=== PATIENT | female | born 1965 | race Hispanic/Latino ===

== ENCOUNTER 2017-03-19 19:47 | Emergency (ER) | payer SELFPAY | END 2017-03-19 19:49 | disposition short-term general hospital (02) | LOC: ER 19:47 | DX: R07.9 Chest pain, unspecified (principal) ==

== ENCOUNTER 2022-05-28 10:51 | Emergency (ER) | payer OTHER ==
[~2022-05-28] VITALS: Ht 149.9 cm; Wt 82.1 kg
[2022-05-28] MEDS ORDERED: KETOROLAC TROMETHAMINE 30 MG/ML VIAL IV STA (11:28)
[2022-05-28] MEDS ORDERED: SODIUM CHLORIDE 0.9% 1000ML 1,000 ML IV STA (11:30)
[2022-05-28] MEDS ORDERED: ASPIRIN 81 MG CHEW TAB PO ONE (11:30)
[2022-05-28] MEDS ORDERED: Morphine 4mg INJECTION 4 MG/ML INJ IV ONE (11:30)
[2022-05-28 11:44] LABS: BASOPHILS % 0.3 % (0.0-1.0); EOSINOPHILS # (AUTO) 0.1 (0.0-0.4); EOSINOPHILS % 0.5 % (0.0-6.0); HEMATOCRIT 39.5 % (34.2-44.1); HEMOGLOBIN 13.3 g/dL (12.0-16.0); LYMPHOCYTES % 10.4 % (18.0-39.1); MEAN CORPUSCULAR HEMOGLOBIN 31.5 pg (28-32); MEAN CORPUSCULAR HGB CONC 33.7 g/dL (31-35); MEAN CORPUSCULAR VOLUME 93.6 fL (81-99); MONOCYTES # (AUTO) 0.3 (0.2-0.8); MONOCYTES % 2.6 % (4.4-11.3); NEUTROPHILS # (AUTO) 8.5 (2.1-6.9); NEUTROPHILS % 85.6 % (38.7-80.0); PLATELET COUNT 240 x10e3/uL (140-360); RED BLOOD COUNT 4.22 x10e6/uL (3.6-5.1); RED CELL DISTRIBUTION WIDTH 12.1 % (11.7-14.4)
[2022-05-28] MEDS ORDERED: CEFTRIAXONE 1 GM VIAL IV ONE (11:45)
[2022-05-28 12:01] LABS: ANION GAP 15.8 mmol/L (8-16); CALCIUM 9.4 mg/dL (8.4-10.2); CREATININE, SERUM 0.78 mg/dL (0.57-1.11); POTASSIUM 3.8 mmol/L (3.5-5.1)
[2022-05-28 12:07] LABS: CREATINE KINASE MB 0.3 ng/mL (0-5.0)
[2022-05-28 12:10] LABS: ALBUMIN 3.3 g/dL (3.5-5.0); BILIRUBIN,DIRECT 0.3 mg/dL (0.0-0.5)
[2022-05-28] MEDS ORDERED: IOPAMIDOL 370 MG/ML 100 ML INFUS..BTL INJ ONE (12:51)
[2022-05-28 13:10] LABS: CLARITY,URINE SL CLOUDY (CLEAR); COLOR,URINE YELLOW (YELLOW)
[2022-05-28 13:11] LABS: KETONES,URINE NEGATIVE (NEGATIVE); LEUKOCYTE ESTERASE ,URINE NEGATIVE (NEGATIVE); NITRITE,URINE NEGATIVE (NEGATIVE); PROTEIN,URINE DIPSTICK NEGATIVE (NEGATIVE); URINE UROBILINOGEN 0.2 mg/dL (0.2 - 1)
[2022-05-28 13:18] LABS: BACTERIA,URINE RARE /HPF; EPITHELIAL CELLS,URINE RARE /LPF; RBC,URINE 0-5 /HPF (0-5); WBC,URINE (MAN) 0-5 /HPF (0-5)
[2022-05-28] MEDS ORDERED: ONDANSETRON ODT4 MG PO (14:16)
[2022-05-28 15:59] VITALS: BP 118/81
== END 2022-05-28 16:02 | disposition home or self-care (01) ==
LOC: ER 11:29
DX: R10.9 Unspecified abdominal pain (principal); R11.2 Nausea with vomiting, unspecified; R19.7 Diarrhea, unspecified; K76.0 Fatty (change of) liver, not elsewhere classified; I10 Essential (primary) hypertension; E11.9 Type 2 diabetes mellitus without complications; Z79.82 Long term (current) use of aspirin
CPT/HCPCS: 36415; 74177; 80048; 80076; 81001; 82550; 82553; 83605; 83690; 84484; 85025; 87040; 93005; 99284; J0696; J1885; J7030; Q9967; J2270

== ENCOUNTER 2023-06-26 16:13 | Inpatient (IN) | payer OTHER ==
[~2023-06-26] VITALS: Ht 154.9 cm; Wt 76.2 kg
[~2023-06-26 16:13] MED LIST: CEFDINIR300 MG PO; ONDANSETRON ODT4 MG PO
[2023-06-26 17:11] LABS: BASOPHILS % 0.1 % (0.0-1.0); EOSINOPHILS # (AUTO) 0.1 (0.0-0.4); EOSINOPHILS % 0.7 % (0.0-6.0); HEMATOCRIT 25.5 % (34.2-44.1); HEMOGLOBIN 8.6 g/dL (12.0-16.0); LYMPHOCYTES # (AUTO) 0.3 (1.0-3.2); LYMPHOCYTES % 3.7 % (18.0-39.1); MEAN CORPUSCULAR HEMOGLOBIN 30.2 pg (28-32); MEAN CORPUSCULAR HGB CONC 33.7 g/dL (31-35); MEAN CORPUSCULAR VOLUME 89.5 fL (81-99); MONOCYTES # (AUTO) 0.2 (0.2-0.8); MONOCYTES % 2.6 % (4.4-11.3); NEUTROPHILS % 90.1 % (38.7-80.0); PLATELET COUNT 197 x10e3/uL (140-360); RED BLOOD COUNT 2.85 x10e6/uL (3.6-5.1); RED CELL DISTRIBUTION WIDTH 16.5 % (11.7-14.4); WHITE BLOOD COUNT 8.86 x10e3/uL (4.8-10.8)
[2023-06-26 17:29] LABS: ALANINE AMINOTRANSFERASE 22 IU/L (0-55); ALBUMIN 1.8 g/dL (3.5-5.0); ALBUMIN/GLOBULIN RATIO 0.5 (0.8-2.0); ALKALINE PHOSPHATASE 148 IU/L (40-150); ANION GAP 12.8 mmol/L (8-16); BILIRUBIN,TOTAL 0.2 mg/dL (0.2-1.2); BLOOD UREA NITROGEN 19 mg/dL (7-26); BUN/CREATININE RATIO 25 (6-25); CALCIUM 8.5 mg/dL (8.4-10.2); CARBON DIOXIDE 21 mmol/L (22-29); CHLORIDE 108 mmol/L (98-107); CREATININE, SERUM 0.76 mg/dL (0.57-1.11); EST GLOMERULAR FILTRATION RATE 91 ML/MIN (>=60); GLUCOSE 354 mg/dL (74-118); POTASSIUM 4.8 mmol/L (3.5-5.1); SODIUM 137 mmol/L (136-145); TOTAL PROTEIN 5.2 g/dL (6.5-8.1)
[2023-06-26 17:35] LABS: TROPONIN I < 0.001 ng/mL (0-0.300)
[2023-06-26] MEDS ORDERED: DEXTROSE 50% SYRINGE 50 ML IV PRN (18:30)
[2023-06-26] MEDS ORDERED: SODIUM CHLORIDE FLUSH 10 ML SYR INJ PRN (18:30)
[2023-06-26 19:10] VITALS: PULSE 87; RESP 18; O2SAT 100
[2023-06-26] MEDS: ONDANSETRON HCL INJ 2MG/ML 2ML 2 MG/ML VIAL IV PRN (19:20)
[2023-06-26] MEDS: Morphine 2mg Syringe 2 MG/ML SYR IV PRN (19:20)
[2023-06-26 19:31] LABS: FERRITIN 667.43 ng/mL (4.63-204.00)
[2023-06-26] MEDS: INSULIN REGULAR, HUMAN 100 UNIT/1 ML SQ SCH (21:09)
[2023-06-26] MEDS ORDERED: METFORMIN HCL500 MG PO (23:08)
[2023-06-26] MEDS ORDERED: TRAZODONE HCL50 MG PO (23:08)
[2023-06-26] MEDS ORDERED: DULOXETINE HCL60 MG PO (23:08)
[2023-06-26] MEDS ORDERED: CARVEDILOL12.5 MG PO (23:08)
[2023-06-26] MEDS ORDERED: PANTOPRAZOLE SO40 MG PO (23:08)
[2023-06-26] MEDS ORDERED: PROVENTIL HFA6.7 GM IH (23:08)
[2023-06-26] MEDS ORDERED: HYDROCODON-ACE1 EA12 PO (23:08)
[2023-06-26] MEDS ORDERED: OLMESARTAN MEDO40 MG PO (23:08)
[2023-06-26] MEDS ORDERED: SULFAMETHOXAZOL20 ML PO (23:08)
[2023-06-26] MEDS ORDERED: PREDNISONE5 MG PO (23:08)
[2023-06-26 23:19] VITALS: BP 179/97; PULSE 86; RESP 18; TEMP 97.4; O2SAT 100
[2023-06-26 23:30] VITALS: BP 179/97; PULSE 86; RESP 18; TEMP 97.4; O2SAT 100
[2023-06-26] MEDS: CLONIDINE HCL 0.1 MG TAB PO PRN (23:49)
[2023-06-27] VITALS (12 sets, daily range): BP systolic 139–185; BP diastolic 90–102; PULSE 69–92; RESP 16–18; TEMP 97.4–98.4; O2SAT 96–100
[2023-06-27] MEDS: ALBUTEROL/IPRATROPIUM 3 ML NEB NEB SCH (00:26)
[2023-06-27 02:00] LABS: CREATINE KINASE 9 IU/L (29-168)
[2023-06-27 02:07] LABS: TROPONIN I < 0.001 ng/mL (0-0.300)
[2023-06-27 05:01] LABS: EOSINOPHILS % 0.3 % (0.0-6.0); HEMATOCRIT 25.4 % (34.2-44.1); LYMPHOCYTES # (AUTO) 0.4 (1.0-3.2); LYMPHOCYTES % 5.9 % (18.0-39.1); MEAN CORPUSCULAR HEMOGLOBIN 29.2 pg (28-32); MEAN CORPUSCULAR HGB CONC 30.7 g/dL (31-35); MONOCYTES # (AUTO) 0.2 (0.2-0.8); MONOCYTES % 3.4 % (4.4-11.3); NEUTROPHILS # (AUTO) 5.6 (2.1-6.9); NEUTROPHILS % 87.9 % (38.7-80.0); PLATELET COUNT 190 x10e3/uL (140-360); RED BLOOD COUNT 2.67 x10e6/uL (3.6-5.1); RED CELL DISTRIBUTION WIDTH 16.7 % (11.7-14.4); WHITE BLOOD COUNT 6.42 x10e3/uL (4.8-10.8)
[2023-06-27 05:21] LABS: HEMOGLOBIN 7.8 g/dL (12.0-16.0); MEAN CORPUSCULAR VOLUME 95.1 fL (81-99)
[2023-06-27 05:32] LABS: ALBUMIN 1.7 g/dL (3.5-5.0); ALBUMIN/GLOBULIN RATIO 0.6 (0.8-2.0); ANION GAP 11.8 mmol/L (8-16); BILIRUBIN,TOTAL 0.1 mg/dL (0.2-1.2); CALCIUM 8.3 mg/dL (8.4-10.2); CREATININE, SERUM 0.71 mg/dL (0.57-1.11); POTASSIUM 4.8 mmol/L (3.5-5.1); TOTAL PROTEIN 4.6 g/dL (6.5-8.1)
[2023-06-27 08:23] LABS: CREATINE KINASE 7 IU/L (29-168)
[2023-06-27 08:30] LABS: TROPONIN I < 0.001 ng/mL (0-0.300)
[2023-06-27] MEDS ORDERED: HYDROCODONE/APAP 7.5MG-325MG 1 EA TAB PO PRN (10:30)
[2023-06-27] MEDS ORDERED: ALBUTEROL 90 MCG/ACT INHALER INH PRN (10:30)
[2023-06-27] MEDS: DULOXETINE HCL 30 MG DELAYED RELEASE PO SCH (11:11)
[2023-06-27] MEDS ORDERED: DULOXETINE HCL 30 MG DELAYED RELEASE ONE (11:11)
[2023-06-27] MEDS ORDERED: PREDNISONE 5 MG TAB ONE (11:11)
[2023-06-27] MEDS: FUROSEMIDE INJ 10 MG/ML 4 ML VIAL IV ONE (11:11)
[2023-06-27] MEDS: OLMESARTAN 20 MG TAB PO SCH (11:11)
[2023-06-27] MEDS ORDERED: FUROSEMIDE INJ 10 MG/ML 4 ML VIAL ONE ×2 (11:11→15:58)
[2023-06-27] MEDS ORDERED: OLMESARTAN 20 MG TAB ONE (11:11)
[2023-06-27] MEDS: ACETAMINOPHEN 325 MG TAB PO PRN (11:12)
[2023-06-27] MEDS: PREDNISONE 5 MG TAB PO SCH (11:19)
[2023-06-27] MEDS ORDERED: CARVEDILOL 12.5 MG TAB ONE (15:58)
[2023-06-27] MEDS: FUROSEMIDE INJ 10 MG/ML 4 ML VIAL IV SCH (16:43)
[2023-06-27] MEDS: CARVEDILOL 12.5 MG TAB PO SCH (16:44)
[2023-06-27] MEDS ORDERED: Azithromycin IV 500 MG 10 ML VIAL ONE (19:58)
[2023-06-27] MEDS ORDERED: SODIUM CHLORIDE 0.9% 250ML 250 ML ONE (19:58)
[2023-06-27] MEDS ORDERED: TRAZODONE HCL 50 MG TAB ONE (19:59)
[2023-06-27] MEDS: TRAZODONE HCL 50 MG TAB PO SCH (20:11)
[2023-06-28] VITALS (9 sets, daily range): BP systolic 142–159; BP diastolic 72–97; PULSE 72–92; RESP 18–22; TEMP 97.8–98.4; O2SAT 95–100
[2023-06-28 06:08] LABS: BASOPHILS % 0.3 % (0.0-1.0); EOSINOPHILS # (AUTO) 0.1 (0.0-0.4); EOSINOPHILS % 1.1 % (0.0-6.0); HEMOGLOBIN 8.6 g/dL (12.0-16.0); LYMPHOCYTES # (AUTO) 0.5 (1.0-3.2); LYMPHOCYTES % 7.9 % (18.0-39.1); MEAN CORPUSCULAR HEMOGLOBIN 29.6 pg (28-32); MEAN CORPUSCULAR HGB CONC 33.1 g/dL (31-35); MEAN CORPUSCULAR VOLUME 89.3 fL (81-99); MONOCYTES # (AUTO) 0.3 (0.2-0.8); MONOCYTES % 4.4 % (4.4-11.3); NEUTROPHILS # (AUTO) 5.2 (2.1-6.9); NEUTROPHILS % 82.5 % (38.7-80.0); PLATELET COUNT 218 x10e3/uL (140-360); RED BLOOD COUNT 2.91 x10e6/uL (3.6-5.1); RED CELL DISTRIBUTION WIDTH 16.4 % (11.7-14.4); WHITE BLOOD COUNT 6.31 x10e3/uL (4.8-10.8)
[2023-06-28 06:25] LABS: ALBUMIN 1.7 g/dL (3.5-5.0); ALBUMIN/GLOBULIN RATIO 0.5 (0.8-2.0); ANION GAP 13.3 mmol/L (8-16); BILIRUBIN,TOTAL 0.2 mg/dL (0.2-1.2); CALCIUM 8.5 mg/dL (8.4-10.2); CREATININE, SERUM 0.66 mg/dL (0.57-1.11); POTASSIUM 4.3 mmol/L (3.5-5.1); TOTAL PROTEIN 4.9 g/dL (6.5-8.1)
[2023-06-28] MEDS ORDERED: FUROSEMIDE INJ 10 MG/ML 4 ML VIAL ONE ×3 (07:42→15:56)
[2023-06-28] MEDS ORDERED: OLMESARTAN 20 MG TAB ONE ×2 (07:42→09:10)
[2023-06-28] MEDS ORDERED: PANTOPRAZOLE SOD 40 MG TABEC ONE (07:42)
[2023-06-28] MEDS ORDERED: DULOXETINE HCL 30 MG DELAYED RELEASE ONE (07:42)
[2023-06-28] MEDS ORDERED: PREDNISONE 5 MG TAB ONE (07:43)
[2023-06-28] MEDS ORDERED: CARVEDILOL 12.5 MG TAB ONE ×2 (07:43→15:56)
[2023-06-28] MEDS ORDERED: PREDNISONE 5 MG TAB PO SCH (09:00)
[2023-06-28] MEDS: PANTOPRAZOLE SOD 40 MG TABEC PO SCH (09:03)
[2023-06-28] MEDS: INSULIN REGULAR, HUMAN 100 UNIT/1 ML SQ ONE (17:04)
[2023-06-28] MEDS: ENOXAPARIN SOD INJ 40 MG/0.4 ML SYR SC SCH (17:49)
[2023-06-28] MEDS: GLIPIZIDE 5 MG TAB PO SCH (17:50)
[2023-06-28] MEDS ORDERED: GLIPIZIDE 5 MG TAB ONE (17:50)
[2023-06-28] MEDS ORDERED: ENOXAPARIN SOD INJ 40 MG/0.4 ML SYR SC ONE (17:51)
[2023-06-28] MEDS ORDERED: TRAZODONE HCL 50 MG TAB ONE (20:41)
[2023-06-28] MEDS ORDERED: Azithromycin IV 500 MG 10 ML VIAL ONE (20:42)
[2023-06-28] MEDS ORDERED: SODIUM CHLORIDE 0.9% 250ML 250 ML ONE (20:44)
[2023-06-28] MEDS ORDERED: INSULIN GLARGINE 100 UNITS/ML VIAL ONE (20:46)
[2023-06-28] MEDS: INSULIN GLARGINE 100 UNITS/ML VIAL SQ SCH (20:51)
[2023-06-29] VITALS (12 sets, daily range): BP systolic 136–160; BP diastolic 83–94; PULSE 20–110; RESP 18–22; TEMP 97.4–98.6; O2SAT 95–100
[2023-06-29 06:15] LABS: BASOPHILS % 0.1 % (0.0-1.0); EOSINOPHILS # (AUTO) 0.1 (0.0-0.4); HEMATOCRIT 29.4 % (34.2-44.1); HEMOGLOBIN 9.4 g/dL (12.0-16.0); LYMPHOCYTES # (AUTO) 0.5 (1.0-3.2); LYMPHOCYTES % 7.6 % (18.0-39.1); MEAN CORPUSCULAR HEMOGLOBIN 29.1 pg (28-32); MONOCYTES # (AUTO) 0.3 (0.2-0.8); MONOCYTES % 4.7 % (4.4-11.3); NEUTROPHILS # (AUTO) 5.6 (2.1-6.9); NEUTROPHILS % 82.6 % (38.7-80.0); PLATELET COUNT 217 x10e3/uL (140-360); RED BLOOD COUNT 3.23 x10e6/uL (3.6-5.1); RED CELL DISTRIBUTION WIDTH 16.1 % (11.7-14.4); WHITE BLOOD COUNT 6.74 x10e3/uL (4.8-10.8)
[2023-06-29 06:24] LABS: ANION GAP 11.8 mmol/L (8-16); CALCIUM 8.6 mg/dL (8.4-10.2); CREATININE, SERUM 0.67 mg/dL (0.57-1.11); POTASSIUM 3.8 mmol/L (3.5-5.1)
[2023-06-29] MEDS ORDERED: GLIPIZIDE 5 MG TAB ONE ×2 (08:38→15:34)
[2023-06-29] MEDS ORDERED: METFORMIN HCL 500 MG TAB ONE (08:39)
[2023-06-29] MEDS ORDERED: OLMESARTAN 20 MG TAB ONE (08:39)
[2023-06-29] MEDS ORDERED: DULOXETINE HCL 30 MG DELAYED RELEASE ONE (08:39)
[2023-06-29] MEDS ORDERED: PANTOPRAZOLE SOD 40 MG TABEC ONE (08:39)
[2023-06-29] MEDS ORDERED: PREDNISONE 5 MG TAB ONE (08:40)
[2023-06-29] MEDS ORDERED: FUROSEMIDE INJ 10 MG/ML 4 ML VIAL ONE ×2 (08:40→15:34)
[2023-06-29] MEDS ORDERED: CARVEDILOL 12.5 MG TAB ONE ×2 (08:40→15:34)
[2023-06-29] MEDS: METFORMIN HCL 500 MG TAB PO SCH (08:55)
[2023-06-29 12:28] LABS: BAND NEUTROPHILS % (MANUAL) 2 %; EOSINOPHILS % (MANUAL) 1 % (0-7); LYMPHOCYTES % (MANUAL) 8 % (19-48); METAMYELOCYTES % (MANUAL) 2 % (0-0); MONOCYTES % (MANUAL) 4 % (3.4-9.0); NEUTROPHILS % (MANUAL) 83 % (40-74)
[2023-06-29 12:31] LABS: PLATELET ESTIMATE ADEQUATE; PLATELET MORPHOLOGY COMMENT NORMAL; RBC MORPHOLOGY COMMENT NORMAL
[2023-06-29] MEDS ORDERED: KETOROLAC TROMETHAMINE 30 MG/ML VIAL IV PRN (13:45)
[2023-06-29] MEDS ORDERED: ENOXAPARIN SOD INJ 40 MG/0.4 ML SYR SC ONE (15:34)
[2023-06-29] MEDS ORDERED: IOPAMIDOL 370 MG/ML 100 ML INFUS..BTL INJ ONE (15:47)
[2023-06-29] MEDS ORDERED: ENOXAPARIN SOD INJ 40 MG/0.4 ML SYR SC SCH (17:00)
[2023-06-29] MEDS ORDERED: TRAZODONE HCL 50 MG TAB ONE (21:05)
[2023-06-29] MEDS ORDERED: Azithromycin IV 500 MG 10 ML VIAL ONE (21:06)
[2023-06-29] MEDS ORDERED: SODIUM CHLORIDE 0.9% 250ML 250 ML ONE (21:07)
[2023-06-29] MEDS ORDERED: Morphine 2mg Syringe 2 MG/ML SYR ONE (23:46)
[2023-06-30] MEDS ORDERED: IOPAMIDOL 370 MG/ML 100 ML INFUS..BTL INJ SCH
[2023-06-30] MEDS ORDERED: ACETAMINOPHEN 325 MG TAB ONE ×2 (00:58→11:04)
[2023-06-30 07:06] VITALS: PULSE 92; RESP 20; O2SAT 96
[2023-06-30 08:00] VITALS: BP_SYST 140; BP_SYST 147; BP_DIAS 90; BP_DIAS 93; PULSE 77; PULSE 92; RESP 20; TEMP 98.2; TEMP 98.4; O2SAT 96; O2SAT 99
[2023-06-30] MEDS ORDERED: CARVEDILOL 12.5 MG TAB ONE ×2 (09:06→11:04)
[2023-06-30] MEDS ORDERED: PANTOPRAZOLE SOD 40 MG TABEC ONE ×2 (09:07→11:04)
[2023-06-30] MEDS ORDERED: OLMESARTAN 20 MG TAB ONE ×2 (09:08→11:04)
[2023-06-30] MEDS ORDERED: DULOXETINE HCL 30 MG DELAYED RELEASE ONE ×2 (09:09→11:04)
[2023-06-30] MEDS ORDERED: PREDNISONE 5 MG TAB ONE ×2 (09:10→11:04)
[2023-06-30] MEDS ORDERED: GLIPIZIDE 5 MG TAB ONE ×2 (09:12→11:04)
[2023-06-30] MEDS ORDERED: FUROSEMIDE INJ 10 MG/ML 4 ML VIAL ONE ×2 (09:12→11:04)
[2023-06-30] MEDS ORDERED: CLONIDINE HCL 0.1 MG TAB ONE (11:04)
[2023-06-30] MEDS ORDERED: Azithromycin IV 500 MG 10 ML VIAL ONE (11:04)
[2023-06-30] MEDS ORDERED: SODIUM CHLORIDE 0.9% INJ 250 ML BAG ONE (11:04)
[2023-06-30] MEDS ORDERED: TRAZODONE HCL 50 MG TAB ONE (11:04)
[2023-06-30] MEDS ORDERED: Morphine 2mg Syringe 2 MG/ML SYR ONE (11:04)
[2023-06-30] MEDS ORDERED: ALBUTEROL/IPRATROPIUM 3 ML NEB ONE (11:04)
[2023-06-30] MEDS ORDERED: ENOXAPARIN SOD INJ 40 MG/0.4 ML SYR SC ONE (11:04)
[2023-06-30 11:12] VITALS: PULSE 89; RESP 20; O2SAT 95
[2023-06-30] MEDS ORDERED: KETOROLAC TROMETHAMINE 30 MG/ML VIAL ONE ×2 (11:25→21:14)
[2023-06-30] MEDS ORDERED: GLIPIZIDE5 MG PO (11:37)
[2023-06-30] MEDS ORDERED: LASIX40 MG PO (11:37)
[2023-06-30 12:00] VITALS: BP 141/86; PULSE 81; RESP 20; TEMP 98.2; O2SAT 100
[2023-06-30] MEDS ORDERED: ONDANSETRON HCL 4 MG ORAL DISINTEGRATING TAB PO PRN (12:30)
[2023-06-30] MEDS ORDERED: ULTRAM 50MG50 MG PO (16:10)
[2023-06-30] MEDS ORDERED: FUROSEMIDE 40 MG TAB PO SCH (17:00)
[2023-06-30] MEDS ORDERED: AZITHROMYCIN 250 MG TAB PO SCH (20:00)
== END 2023-06-30 12:57 | disposition home or self-care (01) | DRG 197 ==
LOC: ER 16:23 → ERHOLD 18:23 → MED/SURG 22:27 → OBSVTOIN 06-27 15:43
PROVIDERS: ADMIT Internal Medicine; ATTEND Internal Medicine
DX: M05.10 Rheumatoid lung disease with rheumatoid arthritis of unspecified site (principal); J96.10 Chronic respiratory failure, unspecified whether with hypoxia or hypercapnia; M33.11 Other dermatomyositis with respiratory involvement; J98.11 Atelectasis; E11.649 Type 2 diabetes mellitus with hypoglycemia without coma; D63.8 Anemia in other chronic diseases classified elsewhere; E88.09 Other disorders of plasma-protein metabolism, not elsewhere classified; Z99.81 Dependence on supplemental oxygen; E11.65 Type 2 diabetes mellitus with hyperglycemia; I10 Essential (primary) hypertension; R60.0 Localized edema; R53.81 Other malaise; F41.9 Anxiety disorder, unspecified; Z11.52 Encounter for screening for COVID-19; T38.0X5A Adverse effect of glucocorticoids and synthetic analogues, initial encounter; Z79.52 Long term (current) use of systemic steroids; Z79.84 Long term (current) use of oral hypoglycemic drugs; Z90.49 Acquired absence of other specified parts of digestive tract; Z82.49 Family history of ischemic heart disease and other diseases of the circulatory system
CPT/HCPCS: 36415; 71046; 71260; 80048; 80053; 82550; 82728; 82948; 83036; 83540; 83880; 84466; 84484; 85025; 93005; 93306; 94640; 94799; 99284; G0378; J1650; J1815; J1885; J1940; J2270; J2405; J7050; J7512; Q9967; U0002